=== PATIENT | female | born 1985 | race Caucasian/White ===

== ENCOUNTER 2017-05-30 03:14 | Emergency (ER) | payer OTHER ==
[~2017-05-30] VITALS: Ht 177.8 cm; Wt 95.2 kg
[~2017-05-30 03:14] MED LIST: ALPRAZOLAM0.5 MG PO; CITALOPRAM HBR40 MG PO; KEFLEX250 MG PO; MONTELUKAST SOD10 MG PO; OMEPRAZOLE20 MG PO; PERCOCET 5-3251 EACH PO; VENTOLIN HFA18 GM INH; ZOLPIDEM TARTRAT5 MG PO
== END 2017-05-30 03:48 | disposition home or self-care (01) ==
LOC: ED 03:14
DX: J45.909 Unspecified asthma, uncomplicated (principal); F41.9 Anxiety disorder, unspecified; Z91.040 Latex allergy status
CPT/HCPCS: 94640; 99283